=== PATIENT | male | born 1960 | race Caucasian/White ===

== ENCOUNTER 2019-03-15 21:25 | Observation (INO) ==
[2019-03-15] MEDS ORDERED: VASOTEC IV ONE (21:48)
[2019-03-15 22:20] LABS: BASO# 0.02 X1000 (0.0-0.2); BASO% 0.3 % (0.0-0.8); EOS# 0.21 X1000 (0.0-0.7); EOS% 2.9 % (0.0-10.0); HEMATOCRIT 47.5 % (42.0-52.0); HEMOGLOBIN 16.5 g/dL (14.0-18.0); IMM GRAN# 0.06 X1000 (0.0-0.04); IMM GRAN% 0.8 % (0.0-0.5); LYMPH# 2.16 X1000 (1.2-3.4); MCH 31.1 PG (27-31); MCHC 34.7 g/dL (33-37); MCV 89.6 FL (81-99); MONO# 0.65 X1000 (0.11-0.59); MPV 10.4 FL (7.4-10.4); NEUT# 4.09 X1000 (1.4-6.5); PLT 227 X1000 (130-400); RDW 13.2 % (11.5-14.5); WBC 7.19 X1000 (4.8-10.8)
[2019-03-15 22:35] LABS: INR 0.88; PROTIME 12.6 Seconds (11.0-16.0)
[2019-03-15 22:50] LABS: AGAP 10; ALB/GLOB RATIO 1.4; ALBUMIN 4.2 g/dL (3.5-5.0); ALKALINE PHOSPHATASE 69 U/L (32-122); BUN 16 mg/dL (8-22); CALCIUM 8.9 mg/dL (8.8-10.2); CHLORIDE 105 mmol/L (98-107); COSMO 284; ESTIMATED GFR > 60; GLUCOSE 95 mg/dL (70-104); GOT 25 U/L (10-34); GPT 32 U/L (10-44); SODIUM 142 mmol/L (136-145); TCO2 27 mmol/L (25-35); TOTAL BILIRUBIN 0.45 mg/dL (0.20-1.00); TOTAL PROTEIN 7.1 g/dL (6.3-8.3)
[2019-03-15 22:57] LABS: CK PROFILE 248 U/L (24-204)
[2019-03-15 23:13] LABS: CK INDEX 2.3 (0.0-2.5); CK-MB 5.75 ng/mL (0.0-5.0)
[2019-03-16] MEDS ORDERED: NORVASC PO ONE ×2 (00:14→02:49)
[2019-03-16] MEDS ORDERED: VASOTEC IV ONE (01:35)
[2019-03-16] MEDS ORDERED: APRESOLINE IV ONE (01:44)
[2019-03-16] MEDS ORDERED: CARDURA PO ONE (02:06)
[2019-03-16] MEDS ORDERED: ASPIRIN PO ONE (02:10)
[2019-03-16] MEDS ORDERED: ZANTAC PO PRN (02:49)
[2019-03-16] MEDS ORDERED: APRESOLINE IV PRN (02:49)
[2019-03-16] MEDS ORDERED: LOVENOX SUBQ SCH (02:49)
[2019-03-16] MEDS ORDERED: VERAMYST NASAL SPRAY NAS PRN (02:49)
--- NOTE | 2019-03-16 03:29 | HISTORY AND PHYSICAL ---
REASON FOR ADMISSION: Two days history of a dull, throbbing headache, and 2 days history of persistent elevated blood pressure and tingling of the left upper extremity today. HISTORY OF PRESENT ILLNESS: Mr. Billy Hodge is a 58-year-old male with past medical history of gout, hypertension, seasonal allergic rhinitis and GERD. He comes in today complaining of a dull, throbbing frontal headache for the last 48 hours. He denies any visual symptoms, neck stiffness with this. No initial focal neurological symptoms. He stated that he has been taking some over- the-counter analgesics with minimal relief. He also noted his blood pressures has been swinging anywhere between 170s to 200s. Today at 9:30 p.m., that is about 6 hours ago, he noticed that his left upper extremity was tingling but no numbness. No weakness. No speech problems or facial asymmetry per . No antecedent cardiovascular symptoms. No shortness of breath, PND, leg swelling. His says he snores but has not witnessed any apnea. The patient reports that over the last 1 hour this tingling has resolved. His blood pressure in the ER has been anywhere between 200 and 220s. He has received amlodipine 5 mg, enalapril 1.25 mg IV and 10 mg of hydralazine. His blood pressure is now anywhere between 160s to 200s. He denies any accompanying symptoms. He has no headache today or any visual symptoms, or speech problems or swallowing problems. No fecal or urinary incontinence. No GI or : Complaints. He has very mild leg swelling which is chronic. No cough, fever, chills. No polyuria or polydipsia. REVIEW OF SYSTEMS: Twelve system review was done. Positive findings per HPI. ALLERGIES: None. MEDICATION: Allopurinol 200 mg daily, lisinopril/hydrochlorothiazide 10/12.5 mg daily, Flonase 1 spray daily, Zyrtec 10 mg daily, Zantac 150 mg p.r.n. FAMILY HISTORY: Notable for heart disease, strokes and type 2 diabetes in first-degree relatives. SURGICAL HISTORY: He has had bilateral arthroscopic surgery for trigger finger release. SOCIAL HISTORY: He is . Does not smoke, drink, or use drugs. LABORATORY WORK: EKG showed normal sinus rhythm with no ST changes consistent with ischemia or injury pattern. White count 7000, hemoglobin and hematocrit 16 and 47, platelets 227,000 with normal differential. BUN 16, creatinine 1.0. Troponin is negative. CK 246. ProBNP is normal. PT, PTT is normal. Chest x-ray is essentially normal with borderline cardiomegaly. Head CT is devoid of any acute infarct or bleed. There is an ovoid density on the right temporal area noted on the film, could represent bone. PHYSICAL EXAMINATION: VITAL SIGNS: Blood pressure 200/102, heart rate is 65, respirations 18, temperature is 97.6 degrees, 99% on room air. GENERAL: He is a middle-aged man who is not in acute distress. He is A and O x3 with normal mood and affect. HEENT: Head is normocephalic, atraumatic. Eyes, KATHIE, EOMI. He is anicteric, not pale. ENT exam is grossly normal. NECK: Supple. No JVD or carotid bruit. No thyromegaly. CHEST: Clear when auscultated with good entry both lung arroyo. CARDIOVASCULAR: First and second heart sounds heard. No gallops, murmurs, rubs. Rhythm is regular. ABDOMEN: Protuberant, soft, nontender. No masses or organomegaly. Bowel sounds are hyperactive. RECTAL: Exam deferred at this time. EXTREMITIES: Trace edema lower extremities. Distal pulses are symmetrical, have good full volume and regular. No clubbing or peripheral cyanosis. NEUROLOGIC: Cranial nerves 2 through 12 are intact. No focal deficits. Power is 5/5 in all extremities. No tremors. No drift. No sensory deficits. SKIN: Intact. No breakdown, lesions or erythema. MUSCULOSKELETAL: Exam is grossly normal. ASSESSMENT: 1. Transient ischemic attack. 2. Uncontrolled hypertension. 3. Gout. 4. Seasonal allergic rhinitis. PLAN: Patient will be admitted to our step-down unit and blood pressure will be cautiously controlled. I will slowly bring down blood pressure. Once we can attain a systolic blood pressure of 170 we will not proceed any further over the next 24 hours. Thereafter, we can plan to bring it down to within normal range, i.e. less than 140. For now, double the dose of patient's Prinzide from 10/12.5mg to 20/25mg daily. Amlodipine will be started at 10 mg daily. We will also add on Cardura in light of the fact that the patient has borderline bradycardia. Hence, limiting our use of clonidine and beta blockers. Because of patient's elevated blood pressure which the says tends to run in the 160s, we strongly recommend patient undergo sleep study to rule out sleep apnea which is very highly likely in this man. We will consult Dr. Parsons to see patient. Aspirin will be started. Statins will be started and we will check patient's uric acid level and A1c and if they are not under control they will need to be treated. cc: MD Alexander Gupta MD MTDD
[2019-03-16 04:29] LABS: HEMOGLOBIN A1C 5.1 % (4.8-6.0)
[2019-03-16 04:41] LABS: INR 0.93; PROTIME 13.2 Seconds (11.0-16.0)
--- NOTE | 2019-03-16 05:58 | Diag Imaging Result Doc PS360 ---
EXAM: CHEST-1 VIEW HISTORY: Uncontrolled hypertension TECHNIQUE: Single view chest COMPARISON: None. FINDINGS: The lungs are well expanded. The heart is not enlarged. The vessels are not distended. There are no infiltrates. No effusion identified. IMPRESSION: Negative exam. Electronically signed by Fracisco Becerra 03/16/2019 5:56 AM
--- NOTE | 2019-03-16 06:19 | Diag Imaging Result Doc PS360 ---
CT HEAD W/O CONTRAST - 03/15/2019 INDICATION: uncontrolled hypertension COMPARISON: 01/13/2014 FINDINGS: The ventricles and sulci are normal in size and contour. No intracranial mass or hemorrhage. The skull is intact. The sinuses mastoids and middle ears are clear. IMPRESSION: Negative exam. This exam was performed using automated exposure control, adjustment of mA or kV according to patient size, and/or use of iterative reconstruction technique Electronically signed by Orlando Wise 03/16/2019 6:17 AM
--- NOTE | 2019-03-16 08:24 | PROGRESS NOTE ---
DATE: 03/16/2019 SUBJECTIVE: Apparently, this weekend he felt his face flushed. He had a little tingling in his left hand. No trouble with speech, vision or focal neurologic complaints, but concerned about blood pressure. I think his son is a nurse practitioner, and they were trying to get his blood pressure down. When he presented to the emergency room, he had blood pressures that were above 200 systolic. Blood pressures have come down, and they have put him on lisinopril/hydrochlorothiazide. He takes 20s-12.5. I believe they have him on 2 a day, amlodipine 10 mg a day and Cardura. I think he was given some IV Vasotec and 10 mg IV Apresoline. He is complaining of a headache. He has no focal neurologic complaints. PHYSICAL EXAMINATION: Vital Signs: Temperature 97.9 degrees, pulse 78, respirations 20, and blood pressure 169/80. Weight 315 pounds. HEENT and Neck: His pupils are equal. No distended neck veins. Lungs: Clear in all lung arroyo. Cardiovascular: Regular rhythm and rate without murmur or S3. Abdomen: Soft. Skin: Warm and dry. LABORATORY REVIEW: White count 7190, hematocrit 47, and platelet count 227,000. Sodium 142, potassium 4.0, chloride 105, BUN 16, and creatinine 1. Blood sugar was 95. Alkaline phosphatase 69 and albumin 4.2. Looking at a lipid profile, his LDL was 125 and HDL 35. He had a chest x-ray done, negative exam. Head CT, negative exam as well. ASSESSMENT AND PLAN: Accelerated hypertension. Blood pressure seems to have come down a little bit. He has a little bit of a headache so I will give him some Tylenol for that. We will check an MRI of the head. I do not find any focal neurologic deficits on exam. No evidence of any cerebrovascular event. Obviously, I have encouraged him to lose weight, pursue aerobic exercise and pursue a high potassium low carbohydrate diet. We will see how he feels this afternoon. Check the MRI, but I think he can probably go home this afternoon. cc: Alexander Zurita MD MTDD
--- NOTE | 2019-03-16 08:26 | EKG Report ---
Test Performed on : 03/15/2019 9:35:20 PM Test Reason : elevated blood pressure, arm pain Blood Pressure : / mmHG Vent. Rate : 065 BPM Atrial Rate : 065 BPM P-R Int : 176 ms QRS Dur : 088 ms QT Int : 402 ms P-R-T Axes : 012 038 051 degrees QTc Int : 418 ms Normal sinus rhythm. Normal ECG No previous ECGs available Unconfirmed Result
[2019-03-16] MEDS ORDERED: ASPIRIN PO SCH (09:00)
[2019-03-16] MEDS ORDERED: ZYLOPRIM PO SCH (09:00)
[2019-03-16] MEDS ORDERED: CARDURA PO SCH (09:00)
[2019-03-16] MEDS ORDERED: PRINZIDE 10/12.5MG PO SCH (09:00)
[2019-03-16] MEDS ORDERED: LIPITOR PO SCH (09:00)
[2019-03-16] MEDS ORDERED: MAG-OX PO SCH (09:00)
--- NOTE | 2019-03-16 11:48 | Diag Imaging Result Doc PS360 ---
MRI BRAIN W/O CONTRAST - 03/16/2019 INDICATION: R/O Stroke COMPARISON: Head CT 03/15/2019 FINDINGS: There is no area of restricted diffusion. The ventricles and sulci are normal in size and contour. No intracranial mass or hemorrhage. There are couple of tiny scattered foci of deep white matter hyperintensity in the cerebral hemispheres bilaterally, mainly at the right frontal lobe and left parietal lobe. Midline structures including optic chiasm and pituitary are normal. IMPRESSION: Tiny nonspecific cerebral white matter hyperintensities, most likely chronic microvascular disease. No acute disease. Electronically signed by Orlando Wise 03/16/2019 11:46 AM
--- NOTE | 2019-03-16 15:34 | ECHO REPORT ---
ORDER DATE: 03/16/2019 2D ECHOCARDIOGRAM: ECHOCARDIOGRAPHIC MEASUREMENTS: 1. Interventricular septum 1.3. 2. Left ventricular posterior wall 1.4. 3. Diastolic diameter 3.8. 4. Left atrium 4. SUMMARY: 1. Technically suboptimal study. Very poor acoustic window. Optison on was used to assess left ventricular systolic function. Mitral valve was normal. Tricuspid valve was normal. Aortic valve leaflets were trileaflet. Pulmonic valve was normal. There is trace mitral regurgitation. Trace tricuspid regurgitation. Peak velocity across the tricuspid valve less than 2 m/sec. Peak velocity across the aortic valve less than 2 m/sec. By Doppler studies there is no aortic stenosis or regurgitation. 2. Normal left ventricular cavity size. Concentric left ventricular hypertrophy. Estimated ejection fraction of 65-70%. 3. There is no pericardial effusion or obvious intracardiac mass or thrombus seen. cc: MD Binh Hassan MD Allen J. Schmidt, MD
[2019-03-16 16:13] VITALS: BP 160/86
--- NOTE | 2019-03-16 17:40 | CONSULTATION ---
DATE OF CONSULTATION: 03/16/2019 REQUESTING PROVIDER: Dr. Binh Lewis. REASON FOR CONSULTATION: Sleep apnea. HISTORY OF PRESENT ILLNESS: This is a 58-year-old male with a medical history of hypertension, seasonal allergies rhinitis, gastroesophageal reflux disease, gout, and morbid obesity. He presented to the ER last night with a dull throbbing headache and persistent elevated blood pressure for 2 days and acute left upper extremity tingling. Initial blood pressure in the ER was 223/117. He has been admitted to the [facility] for further evaluation and management. At the time of my examination, patient is sitting in bed comfortably with no acute distress noted. The patient's is at the bedside. He reports snoring, morning headache at times and daytime tiredness. He denies interrupted sleep, insomnia, hypersomnia, shortness of breath, pedal edema, paroxysmal nocturnal dyspnea, chest pain, or palpitation. His reports no witnessed apnea. PAST MEDICAL AND SURGICAL HISTORY: 1. Hypertension. 2. Seasonal allergic rhinitis. 3. Gastroesophageal reflux disease. 4. Gout. 5. Morbid obesity; current BMI 41.66. 6. Bilateral arthroscopic surgery for trigger finger release. SOCIAL HISTORY: The patient is and lives at home with his family. Patient's has been diagnosed with obstructive sleep apnea and is on CPAP therapy currently. He has no history of tobacco, alcohol, or illicit drug use. FAMILY HISTORY: Positive for obstructive sleep apnea, heart disease, strokes, diabetes, and breast cancer. ALLERGIES: No known drug allergies. REVIEW OF SYSTEMS: A 10-point review of systems was conducted and the pertinent is listed within the HPI, otherwise noncontributory. PHYSICAL EXAMINATION: Vital Signs: Temperature 98.2 degrees, blood pressure 164/69, pulse 76, respiratory rate 16, oxygen saturation 98% on room air. General: Patient is lying in bed comfortably with no acute distress noted. His is at the bedside. He is very pleasant and cooperative. HEENT: Atraumatic. Trachea midline. Mucosa pink and moist. Respiratory: Even and unlabored. Symmetrical excursion. Clear to auscultation. Cardiovascular: Regular rate and rhythm. Gastrointestinal: Bowel sounds normoactive in all 4 quadrants. Soft and nontender, obese. Extremities: No pedal edema. No cyanosis. No clubbing. Neurologic: Alert and oriented x3. Speech fluent. Follows commands. LAB DATA: No labs today. ASSESSMENT: This is a 58-year-old male with a medical history of hypertension, seasonal allergic rhinitis, gastroesophageal reflux disease, gout, and morbid obesity. He has been admitted to the [facility] with transient ischemic attack and uncontrolled hypertension. 1. Snoring. 2. Transient ischemic attack. 3. Uncontrolled hypertension. PLAN: 1. We will plan outpatient sleep study. 2. Recommend to lose weight and avoid the supine position during sleep. 3. Educate on good sleep hygiene. 4. Discussed with the patient about our plan. Patient showed understanding and agreement. All questions have been answered. 5. Continue gastrointestinal and deep venous thrombosis prophylaxis. 6. Further recommendations pending hospital course. Thank you for the courtesy of this consult. Dictated by RJ Hamilton for Cheryl Parsons MD cc: RJ Hamilton MD Allen J. Schmidt, MD [facility]
--- NOTE | 2019-03-16 17:43 | CONSULTATION ---
DATE OF CONSULTATION: 03/16/2019 REASON FOR CONSULT: Evaluate for stroke. HISTORY OF PRESENT ILLNESS: This is a 58-year-old, ambidextrous male who was admitted yesterday. History is from the patient. He reports recently that his blood pressures have been more variable. They began to creep up into the 200s near the end of the week. I believe on Saturday he had a gradual onset, holocephalic, throbbing or pounding headache. He denied any visual changes, any focal neurologic symptoms for the most part. The only thing he noted was some isolated prickly sensation over the ventral upper left arm area that has since resolved. It was not circumferential and it did not involve the entire arm. It did not involve the shoulder or the forearm or the hand. There was no numbness or weakness. His son is a nurse practitioner in [place] and instructed the patient to take extra doses of his single home blood pressure medication which he did on Saturday and some on Saturday. Saturday night, he presented to the emergency room because his blood pressures kept rising. He reports his headache subsided by Saturday, however, and he has not had that strong of a headache since that time. In the hospital, he has had some mild nagging headache but nothing severe. The patient denies chest pain shortness of breath and again no focal neurologic symptoms. No confusion. No loss of consciousness. No speech difficulty or swallowing problems. No prior history of stroke or major neurologic event. On arrival, the patient's blood pressure was 223/117. That has gradually come down to current 160/86 with the addition of multiple antihypertensives. Head CT on arrival did not show acute findings, and MRI also did not show acute findings. PAST MEDICAL HISTORY: Includes 1. Hypertension. 2. GERD. 3. Gout. 4. Seasonal allergies. FAMILY HISTORY: Positive for heart disease and strokes. SOCIAL HISTORY: No alcohol, tobacco, or illicits. He is . He is a carpenter. ALLERGIES: No known drug allergies. MEDICATIONS: At home include 1. Allopurinol. 2. Lisinopril/hydrochlorothiazide. 3. Flonase. 4. Zyrtec. 5. Zantac. REVIEW OF SYSTEMS: Balance of 12 was conducted and is otherwise negative except that detailed in the HPI. PHYSICAL EXAMINATION: Vital Signs: Afebrile. Blood pressure 223/117 on admission. Current 160/86, pulse 70s, respirations 17, 100% on room air. Neurologic: Mr. Hodge is supine in bed on his left side, appears to be asleep when I entered the room. He is easily woken. He remains alert, oriented, spontaneous and conversational. No language disturbance. No dysarthria. Follows simple and complex commands. Pupils equal, round, reactive to light. Gaze conjugate. Extraocular movements are full. Visual arroyo intact to direct confrontational testing. Face symmetric with equal activation. He could hear facial sensation intact. Tongue is midline. Difficult to visualize the palate. Shoulder shrug is full. No drift. Tone is symmetric in the limbs. Strength is preserved in the arms and legs, 5/5 and symmetric. [id number] and rapid alternating movements preserved. Sensation to light touch and temperature symmetric in the arms and legs. Reflexes are diminished at the ankles, trace at the knees and wrists. No clonus. Plantar response is downgoing. Gait: Normal casual gait unassisted, good turn, good balance. DIAGNOSTICS: MRI of the brain noncontrast personally reviewed, no acute findings. Echocardiogram: No intracardiac mass or thrombus seen. Head CT negative exam. LABORATORY DATA: Reviewed in the chart. Triglycerides 179, cholesterol 164, LDL 125, HDL 35. ASSESSMENT AND PLAN: Likely accelerated hypertension with subsequent headache, improved. Negative imaging, nonfocal exam and improving clinical status is reassuring. I agree with treating his blood pressure and will defer to the primary team in that regard. This does not sound like an ischemic event. Agree with managing his risk factors, however. I believe carotid Dopplers are pending. Thank you for the consultation. cc: MD Alexander Garner MD MTDD
--- NOTE | 2019-03-16 18:28 | DISCHARGE SUMMARY ---
ADMISSION DATE: 03/16/2019 DISCHARGE DATE: 03/16/2019 He had a 2-day history of dull, throbbing headache, 2-day history of persistent elevated blood pressure, tingling left upper extremity. This is a 58-year-old with past medical history gout, hypertension, seasonal allergic rhinitis and gastroesophageal reflux. Today, he came in complaining of dull throbbing frontal headache for the last 48 hours. Denies any visual symptoms, neck stiffness. No initial focal neurologic symptoms. He stated he has been taking some over-the- counter analgesic minimal relief. He also noted blood pressures been swinging anywhere from 170s to 200s. The day of admission at 9:30 p.m. about 6 hours before this admission history and physical was done noticed that his left upper extremity was tingling with numbness. No speech problem or facial asymmetry. No antecedent cardiovascular symptoms. No shortness of breath. The states that he snores but has not witnessed any apnea. Patient says that for now for at least an hour this tingling has resolved. Blood pressure in the emergency room was 200-220 systolic. Received some amlodipine 5 mg and enalapril 1.25 IV and 10 mg of hydralazine. Blood pressure has been between 160s and 70s. He denies any accompanying symptoms. He has not had any more further headache or visual symptoms. No speech problems or swallowing problems and he is hungry. His appetite is good, so admitted with accelerated hypertension. His labs all unremarkable. White blood cell count 7190, hematocrit 47, platelet count 227,000. Chemistries unremarkable including renal function. Creatinine 1.0. Electrolytes look good. CPK was 248. Troponin 0.01. Lipid profile this morning, total cholesterol was 164, LDL was 125 and HDL was 35. TSH was 8.9. Watched him today, he had a regular diet. Blood pressures systolic still running around 160s consistently. Feels much better. He had a brain MRI that was done this morning. Tiny nonspecific cerebral white matter hyperintensities, most likely chronic microvascular disease. No other acute disease. Head CT without contrast, negative exam. Echocardiogram technically suboptimal study. Poor acoustic window. Optison was used to assess left ventricular systolic function. Mitral valve was normal. Tricuspid valve normal. Aortic valve leaflets look normal. There was no aortic stenosis or regurgitation. Left ventricular cavity size was normal. Concentric left ventricular hypertrophy. Estimated ejection fraction 65 to 70%. I think he would be okay to go home. We will discharge him on his medications. He is on allopurinol 300 mg a day, ascorbic acid, vitamin C 1000 mg a day. He is taking Zyrtec I think 10 mg a day for pollen allergies. He is on Colcrys 0.6 mg p.o. He takes that twice a day p.r.n. gouty arthritis. He is also on Richa, so I will probably have him stop 1 of the Richa or the Zyrtec. He is taking Veramyst nasal spray 1 puff each nostril every day. He is on Xyzal. He taking lisinopril hydrochlorothiazide 10 to 12.5 once a day, magnesium tablet once a day and he is taking his Zantac. I am going to have him on the Lipitor 80 mg a day. He is on Cardura 4 mg a day which we started and we gave him give him 2 of the Prinzide which is 10-12.5, so he will be taking 20-25 Prinzide once a day. We will continue the Zantac. Precautions for him to stay off the other antihistamines and I will follow him back in my office in 4 weeks. I will have them the check the blood pressures and write them down. cc: Alexander Zurita MD
--- NOTE | 2019-03-17 14:17 | Carotid Study ---
DATE: 03/16/2019 PROCEDURE: Bilateral carotid ultrasound study. REQUESTING PHYSICIAN: Binh Lewis MD. INTERPRETING PHYSICIAN: Gen Murray MD. TECH: [employer]. INDICATIONS: 1. TIA. 2. History of hypertension. EQUIPMENT: SimpleCrewid E9 ultrasound system with a 9LD transducer. OBSERVED DATA RIGHT LEFT Brachial Blood Pressure Carotid Pulse Bruits: Carotid/Sub DIAGRAM OF ULTRASOUND IMAGING R L RIGHT INT EXT INT EXT LEFT Jaron (cm/s) Jaron (cm/s) Subclavian 152/0 Subclavian 184/0 CCA Proximal 138/21 CCA Proximal 121/12 CCA Distal 101/17 CCA Distal 133/22 Bulb 82/17 Bulb 77/9 ICA Proximal 69/8 ICA Proximal 97/13 ICA Mid 93/23 ICA Mid 73/18 ICA Distal 86/19 ICA Distal 107/26 ECA 181/12 ECA 194/14 Vertebral 51/7 A Vertebral 68/20 A ICA/CCA Ratio 0.68 ICA/CCA Ratio 0.80 % Stenosis 0-39% % Stenosis 0-39% FINDINGS: Minimal atherosclerosis, which at this time does not produce a hemodynamically significant flow-limiting stenosis. Both vertebral arteries are antegrade flow. PHYSICIAN INTERPRETATION: Essentially normal bilateral carotid arteries without hemodynamically significant flow-limiting stenosis by strict velocity criteria. cc: MD Binh Dyer MD Allen J. Schmidt, MD
== END 2019-03-16 18:25 | disposition home or self-care (01) ==
LOC: ED 21:25 → INTOOBSV 03-16 02:27 → SUATTDRO 03-16 02:27 → 3S 03-16 02:27
PROVIDERS: ADMIT Emergency Medicine; ATTEND Emergency Medicine
CPT/HCPCS: 70450; 70551; 71010; 71045; 80053; 80061; 82550; 82553; 83036; 83721; 83735; 83880; 84443; 84484; 84550; 85025; 85610; 93005; 93306; 93880; 96374; 96375; 99285; A9270; C8929; J0360; J1650; Q9957